=== PATIENT | female | born 1990 | race Caucasian/White ===

== ENCOUNTER → 2017-07-08 15:41 | Outpatient (CLI) | payer OTHER, SELFPAY ==
[2017-07-08 17:55] LABS: T4 Free Direct 1.01 ng/dL (0.76-1.46); Thyroid Stim Hormone (TSH) 0.96 uIU/mL (0.358-3.74)
== END ==
PROVIDERS: Family Provider Family Medicine; PCP Family Medicine; Visit Provider Internal Medicine Endocrinology, Diabetes & Metabolism
DX: E03.8 Other specified hypothyroidism (principal)
CPT/HCPCS: 36415; 84439; 84443

== ENCOUNTER 2017-09-26 19:40 | Inpatient (IN) | payer OTHER, SELFPAY ==
[2017-09-26] MEDS: Lactated Ringers 1,000 ML 50 ML IV (19:45)
[2017-09-26 20:13] VITALS: BMI 25.2
[2017-09-26 20:17] LABS: Hematocrit 37.4 % (37-47); Hemoglobin 13.1 g/dl (12.0-15.0); Mean Corpuscular Hgb 31.6 pg (27.0-32.0); Mean Corpuscular Volume 90.1 fL (81-99); Mean Platelet Vol. 9.4 fl (6.2-12.0); Platelet Count 235 K/mm3 (150-450); RBC Distribution Width CV 13.6 % (11.6-14.6); RBC Distribution Width SD 44.3 fl (35.1-43.9); Red Blood Count 4.15 M/mm3 (4.2-5.4); Scan Indicated on CBC? Y/N NO; White Blood Count 11.3 K/mm3 (4.4-11.0)
--- NOTE | 2017-09-26 21:11 | PCM.HP.OB ---
History Date of Admission: 09/26/17 Final ZAIRA: 09/26/17 Final ZAIRA Source: US <20 weeks Gestational age: 40 Weeks and 0 Days History of this : 26-year-old 2 para 1 female who presents at 40 weeks gestation with EDC of 09/26/2017 by last menstrual period confirmed by first trimester ultrasound who presents for elective induction of labor. She denies any gross vaginal bleeding or leaking of fluid. She has had some cramping but no regular contractions. She has had good movements and lots of pelvic pressure. Her has been uncomplicated to date. Past medical history significant for mitral valve prolapse and uninodular goiter Family medical history is noncontributory Past surgical history is tonsillectomy Allergies No Known Allergies Allergy (Verified 09/26/17 19:51) Home Medications: Home Medications Prenatabs FA 1 tab PO DAILY 12/13/15 Levothyroxine Sodium [Synthroid] 75 mcg PO DAILY 09/26/17 Levothyroxine [Synthroid] 50 mcg PO DAILY 09/26/17 Smoking Status: Never smoker Alcohol: None - while Number of Fetus(es): 1 History Past Pregnancies: Past Pregnancies Delivery Date Name GA/Weeks Outcome Route Weight Infant Gender Labor Length Anesthesia Delivery Location Provider FOB Expected Delivery Method: Spontaneous Vaginal Review of Systems Constitutional: Denies: Chills, Fever Eyes: Denies: Blurred vision Cardiovascular: Denies: Chest Pain Respiratory: Denies: Cough, Shortness of Breath Skin: Denies: Rash Physical Exam General: Alert, Cooperative, No apparent distress Cardiovascular: Regular rate Lungs: Normal air movement Abdomen: Soft, Non Tender, Non-Distended, Gravid, Appropriate for Gestational Age Extremities:: Other - edema-1+ Estimated gestational size: Appropriate for gestational size Presentation: Cephalic Cervix Dilation (cm): 5 - mid position, soft Station: 0 Effacement (%): 80 Assessment/Plan This is a 26 year-old, G 2, P 1, at 40 weeks gestational age. Patient with advanced cervical dilation and favorable cervix. She is having irregular contractions. Will admit for early labor and augment with Pitocin as needed. Artificial rupture membranes. Group B strep prophylaxis initiated. Estimated weight is less than 4500 g and pelvis clinically adequate to expect vaginal delivery. May have epidural, nitrous oxide, or Nubain as needed for pain control.
[2017-09-26] MEDS: Oxytocin 30 units/NS 500 ml 30 UNITS/500 ML IV.SOLN IV (22:26)
[2017-09-26] MEDS: 0.9% Saline Lock 10 ML Syringe IV (22:27)
[2017-09-26] MEDS: Ondansetron 4 MG/2 ML Vial IV (23:59)
[2017-09-27] MEDS: Oxytocin 30 units/NS 500 ml 30 UNITS/500 ML IV.SOLN 334 UNITS IV (01:08)
--- NOTE | 2017-09-27 01:25 | PCM.OB.VAG ---
Vaginal Delivery Maternal Presentation: Elective Induction - advanced cervical dilation Method of Induction: Pitocin, Amniotomy Amniotic Membrane Rupture Type: Artificial Amniotic Fluid Description: Clear Final ZAIRA: 09/26/17 Final ZAIRA Source: US <20 weeks Gestational age: 40 Weeks and 1 Days Date of Procedure: 09/27/17 Pre-Operative Diagnosis: labor Post-Operative Diagnosis: same Surgery/ Procedure Performed: Spontaneous Vaginal Delivery Type of Anesthesia: None Description of Procedure: A vigorous female was delivered MILLY over an intact perineum. The remainder the infant was delivered with maternal pushing and gentle traction only in less than 15 seconds. The Pitocin infusion was initiated for active management of the third stage. The cord was clamped and cut after 1 minute. The infant was attended to by the waiting nursing staff. The placenta was delivered spontaneously and intact. The cervix and vagina were intact. Sponge and needle counts were correct. A vaginal sweep was completed by me. Presentation: MILLY Placental Delivery Description: Spontaneous Placenta Disposition: [facility] Cord Vessel Description: 3 Vessels Cord Entanglement: None Drain: - - none Estimated Blood Loss: 200 A gender: Female (1 minute): 8 (5 minute): 9 Episiotomy Description: None Laceration: None Medications given after delivery: IV Pitocin Complications: None
[2017-09-27] MEDS: Oxytocin 30 units/NS 500 ml 30 UNITS/500 ML IV.SOLN 167 UNITS IV (01:38)
[2017-09-27] MEDS: 0.9% Saline Lock 10 ML Syringe IV (02:41)
[2017-09-27] MEDS: Naproxen 250 MG Tablet PO ×3 (02:49→20:41)
[2017-09-27 03:14] VITALS: BP 120/67; PULSE 68; RESP 18; TEMP 37.3
[2017-09-27] MEDS: Levothyroxine 50 MCG Tablet PO (06:10)
--- NOTE | 2017-09-27 08:22 | DCINST_ITS ---
Discharge Diet: No Restrictions Discharge Activity: Return to Normal Activity, May not drive while taking narcotic pain medications., May Shower May resume sexual activity in: 4-6 weeks Additional Activity Instructions:: Nothing in the vagina for 4-6 weeks. You may return to work/school in 6 weeks. Call your doctor if your incision/area has: Continuous Slow Oozing, Sudden Increased Bleeding, Increased Pain/ Swelling, Increased Redness, Foul Smelling Discharge Additional Instructions: If you experience any of the following, contact your healthcare provider. * Bleeding that soaks a pad every hour for 2 hours * Fever 100.4 or higher * Unrelieved incision or abdominal pain * Swelling, redness, discharge or bleeding from your incision or episiotomy site * Your incision begins to separate * Problems urinating (including inability to urinate or burning while urinating) . * Visual changes * Severe headache * Flu-like symptoms * Pain or redness in one of both of your breasts * Pain, warmth, tenderness or swelling in your legs, especially the calf area * Frequent nausea and vomiting * Symptoms of depression or anxiety If you experience any of the following, call 911 or go to the nearest Emergency Room. * Chest pain * Problems breathing * Seizure activity * Partial or complete paralysis of a body part, slurred speech, weakness or drooping of the face, or a sudden inability to walk or hold your balance Allergies/Adverse Reactions: Allergies No Known Allergies Allergy (Verified 09/26/17 19:51) Medications to take at Discharge Prenatabs FA 1 tab PO DAILY 12/13/15 Levothyroxine Sodium [Synthroid] 75 mcg PO DAILY 09/26/17 Levothyroxine [Synthroid] 50 mcg PO DAILY 09/26/17 Ibuprofen [Motrin] 600 mg PO Q6H PRN #60 tab 09/27/17 The following prescriptions were given: Ibuprofen [Motrin] 600 mg PO Q6H PRN #60 tab PRN Reason: Pain Please Follow Up With: Julieta Sierra MD - [phone] When: Call to make an appointment with your doctor in 6 weeks. If you had elevated Blood Pressure or 4th degree laceration you will need to be seen in 2 weeks. Primary Care Physician: Jermaine Hanson MD [Primary Care Provider] -
[2017-09-27 09:14] VITALS: BP 99/58; PULSE 62; RESP 16; TEMP 36.9
[2017-09-27] MEDS: Senna/Docusate Sodium 1 Tablet PO (11:58)
[2017-09-27 12:30] VITALS: BP 106/62; PULSE 66; RESP 16; TEMP 36.7
[2017-09-27 16:00] VITALS: BP 102/58; PULSE 61; RESP 16; TEMP 37.2
[2017-09-27 21:01] VITALS: BP 98/51; PULSE 59; RESP 16; TEMP 36.3; O2SAT 99
[2017-09-28 01:06] VITALS: BP 93/53; PULSE 68; RESP 16; TEMP 36.7; O2SAT 99
[2017-09-28] MEDS: Naproxen 250 MG Tablet PO (06:30)
[2017-09-28] MEDS: Levothyroxine 50 MCG Tablet PO (06:31)
--- NOTE | 2017-09-28 08:37 | PCM.PN.OB ---
Subjective: No complaints - Physical Exam General: Alert, Oriented x3 Abdomen: Soft, Non Tender, Non-Distended - ff mid & below umb Extremities: No Calf Tenderness Vital Signs Temp Pulse Resp BP Pulse Ox 98.1 F 68 16 93/53 L 99 09/28/17 01:06 09/28/17 01:06 09/28/17 01:06 09/28/17 01:06 09/28/17 01:06 Oxygen Delivery Method Room Air Weight: 161 lb 6.054 oz Body Mass Index (BMI) 25.2 Intake and Output for Last 24 Hours 09/26/17 09/27/17 09/28/17 23:59 23:59 23:59 Intake Total 694 / 694 Output Total 200 / 200 400 / 400 Balance -200 / -200 294 / 294 Medical Necessity - Tobacco Use Smoking Status: Never smoker Assessment/Plan PPD#1 D/c home
[2017-09-28 08:40] VITALS: BP 111/59; PULSE 62; RESP 20; TEMP 36.3
== END 2017-09-28 12:10 | disposition home or self-care (01) | DRG 775 ==
PROVIDERS: Admitting Provider Obstetrics & Gynecology; Family Provider Family Medicine; PCP Family Medicine; Visit Provider Obstetrics & Gynecology
DX: O48.0 Post-term pregnancy (principal); Z3A.40 40 weeks gestation of pregnancy; Z37.0 Single live birth
CPT/HCPCS: 59025; 59050; 85027; 86850; 86900; 99218; J7120; A4216; G0378; J2405

== ENCOUNTER → 2017-11-08 15:25 | Outpatient (CLI) | payer OTHER, SELFPAY ==
[2017-11-08 17:10] LABS: ALB/GLOB Ratio 1.3 RATIO (0.9-2.4); AST(SGOT) 19 U/L (15-37); Alanine Aminotransfer ALT/SGPT 31 U/L (13-56); Alkaline Phosphatase 71 U/L (45-117); Anion Gap 7 (5-15); BUN 16 mg/dL (7-18); BUN/Creat Ratio 20.2 RATIO (10-20); Calcium,Total 8.7 mg/dL (8.5-10.1); Chloride 104 mmol/L (98-107); Creatinine, Serum 0.79 mg/dL (0.55-1.02); EST Glomerular Filtration Rate 93 mL/min (>60); Est Glom Filt Rate - Afr Amer 112 mL/min (>60); Glucose 92 mg/dL (74-106); Potassium 4.1 mmol/L (3.5-5.1); Sodium Level 140 mmol/L (136-145); T4 Free Direct 1.02 ng/dL (0.76-1.46)
== END ==
PROVIDERS: Family Provider Family Medicine; PCP Family Medicine; Visit Provider Internal Medicine Endocrinology, Diabetes & Metabolism
DX: E03.8 Other specified hypothyroidism (principal)
CPT/HCPCS: 36415; 80053; 84439; 84443

== ENCOUNTER → 2017-12-23 19:06 | Outpatient (CLI) | payer OTHER, SELFPAY | PROVIDERS: Family Provider Family Medicine; PCP Family Medicine; Visit Provider Physician Assistant | DX: J02.9 Acute pharyngitis, unspecified (principal) | CPT/HCPCS: 87081 ==

== ENCOUNTER → 2018-02-27 11:31 | Outpatient (CLI) | payer OTHER, SELFPAY ==
[2018-02-27 13:59] LABS: Thyroid Stim Hormone (TSH) 2.68 uIU/mL (0.358-3.74)
== END ==
PROVIDERS: Family Provider Family Medicine; PCP Family Medicine; Referring Provider Internal Medicine Endocrinology, Diabetes & Metabolism; Visit Provider Internal Medicine Endocrinology, Diabetes & Metabolism
DX: E03.8 Other specified hypothyroidism (principal)
CPT/HCPCS: 36415; 84443

== ENCOUNTER → 2018-10-29 16:13 | Outpatient (CLI) | payer OTHER, SELFPAY ==
[2017-12-23 10:23] VITALS: BMI 22.1
[2018-10-29 18:08] LABS: BUN 10 mg/dL (7-18); Creatinine, Serum 0.57 mg/dL (0.55-1.02); EST Glomerular Filtration Rate 135 mL/min (>60); Glucose 90 mg/dL (74-106)
[2018-10-29 18:09] LABS: ALB/GLOB Ratio 1.3 RATIO (0.9-2.4); AST(SGOT) 24 U/L (15-37); Alanine Aminotransfer ALT/SGPT 31 U/L (13-56); Albumin, Serum 3.8 g/dL (3.2-5.0); Alkaline Phosphatase 65 U/L (45-117); Anion Gap 8 (5-15); BUN/Creat Ratio 17.6 RATIO (10-20); Calcium,Total 8.3 mg/dL (8.5-10.1); Chloride 105 mmol/L (98-107); Est Glom Filt Rate - Afr Amer 164 mL/min (>60); Potassium 3.5 mmol/L (3.5-5.1); Protein, Total 6.8 g/dL (6.4-8.2); Sodium Level 140 mmol/L (136-145); Thyroid Stim Hormone (TSH) 2.41 uIU/mL (0.358-3.74)
== END ==
PROVIDERS: Family Provider Family Medicine; PCP Family Medicine; Referring Provider Internal Medicine Endocrinology, Diabetes & Metabolism; Visit Provider Internal Medicine Endocrinology, Diabetes & Metabolism
DX: E03.8 Other specified hypothyroidism (principal)
CPT/HCPCS: 36415; 80053; 84443

== ENCOUNTER 2019-02-11 13:55 | Outpatient (REF) | payer SELFPAY ==
[2019-02-11 13:56] VITALS: BP 111/68; PULSE 91; RESP 15; TEMP 37.3; O2SAT 99; BMI 21.3
--- NOTE | 2019-02-11 14:08 | ED.RN ---
exposure protocols ordered. dr Walker consulted about case. syed jaramillo rn [id number]
--- NOTE | 2019-02-11 14:39 | ED.DCSUM_ITS ---
- ER Visit Summary Date of Service: 02/11/19 Chief Complaint: Body fluid exposure History of Present Illness: The patient is a 28 F who was assisting in a delivery of an infant today. Another nurse was suctioning the airway of the and went to squirt the bulb suction out and it hit the patient in the face and probably into her eye. She washed at the eye station was advised to come to the emergency department. She does not wear contacts. Physical Examination: Afebrile vital signs stable Gen: Well-nourished well-developed Head: Normocephalic atraumatic Eyes: Perrl EOMI ENT: TMs clear no rhinorrhea moist mucous membranes Neck: Supple no lymphadenopathy no JVD nontender CVS: Regular rate rhythm no murmurs normal S1-S2 Respiratory: No distress clear to auscultation bilaterally chest nontender Skin: Normal color no rash Neuro: alert orientated ?3 CN II-XII intact Psych: Normal affect normal mood Emergency Department Course and Treatment: Body fluid exposure protocol was instituted. Patient will need to follow-up with occupational medicine. She received a pamphlet regarding fluid exposures. She is declining preventative medicines at this time. Impression: 1. Occupational body fluid exposure This note was generated with [employer] dictation software. It may contain incorrect words, spelling, and punctuation that were not noted in review of the chart prior to signing ED Disposition - Plan for ED Patient: Disposition: Home or Assisted Living Instructions: BODY FLUID EXPOSURE, Health Care Worker Additional Instructions: Please follow-up with employee health here at [facility]
[2019-02-11 15:05] VITALS: RESP 16
[2019-02-11 16:40] LABS: HIV - WCH Non-Reactive (Nonreactive); Hepatitis B Surface Antibody Reactive; Hepatitis B Surface Antigen Non-Reactive (Nonreactive); Hepatitis C Antibody Non-Reactive (Nonreactive)
== END 2019-02-11 15:09 | disposition home or self-care (01) ==
LOC: ED 13:55
PROVIDERS: Family Provider Family Medicine; PCP Family Medicine; Visit Provider Emergency Medicine
DX: Z77.21 Contact with and (suspected) exposure to potentially hazardous body fluids (principal); E03.9 Hypothyroidism, unspecified; Z79.899 Other long term (current) drug therapy
CPT/HCPCS: 36415; 86703; 86706; 86803; 87340

== ENCOUNTER → 2019-05-12 11:38 | Outpatient (CLI) | payer OTHER, SELFPAY ==
[2019-02-14 11:08] VITALS: BMI 21.3
[2019-05-12 13:52] LABS: ALB/GLOB Ratio 1.3 RATIO (0.9-2.4); AST(SGOT) 9 U/L (15-37); Alanine Aminotransfer ALT/SGPT 19 U/L (13-56); Albumin, Serum 4.3 g/dL (3.2-5.0); Alkaline Phosphatase 42 U/L (45-117); Anion Gap 4 (5-15); BUN 11 mg/dL (7-18); BUN/Creat Ratio 14.3 RATIO (10-20); Chloride 105 mmol/L (98-107); Creatinine, Serum 0.77 mg/dL (0.55-1.02); EST Glomerular Filtration Rate 95 mL/min (>60); Est Glom Filt Rate - Afr Amer 115 mL/min (>60); Globulin 3.4 g/dL (2.2-4.2); Glucose 88 mg/dL (74-106); Potassium 3.1 mmol/L (3.5-5.1); Protein, Total 7.7 g/dL (6.4-8.2); Sodium Level 137 mmol/L (136-145); Thyroid Stim Hormone (TSH) 2.13 uIU/mL (0.358-3.74)
== END ==
PROVIDERS: Family Provider Family Medicine; PCP Family Medicine; Referring Provider Internal Medicine Endocrinology, Diabetes & Metabolism; Visit Provider Internal Medicine Endocrinology, Diabetes & Metabolism
DX: E03.8 Other specified hypothyroidism (principal)
CPT/HCPCS: 36415; 80053; 84443

== ENCOUNTER → 2019-05-18 14:07 | Outpatient (CLI) | payer OTHER, SELFPAY ==
[2019-02-14 11:08] VITALS: BMI 21.3
[2019-05-18 16:11] LABS: Anion Gap 3 (5-15); BUN 8 mg/dL (7-18); BUN/Creat Ratio 12.9 RATIO (10-20); Calcium,Total 8.9 mg/dL (8.5-10.1); Chloride 107 mmol/L (98-107); Creatinine, Serum 0.62 mg/dL (0.55-1.02); EST Glomerular Filtration Rate 122 mL/min (>60); Est Glom Filt Rate - Afr Amer 147 mL/min (>60); Glucose 93 mg/dL (74-106); Magnesium 2.1 mg/dL (1.6-2.6); Potassium 3.6 mmol/L (3.5-5.1); Sodium Level 138 mmol/L (136-145)
== END ==
LOC: LAB.FUTURE 14:09 → LAB 14:10
PROVIDERS: Family Provider Family Medicine; PCP Family Medicine; Referring Provider Internal Medicine Endocrinology, Diabetes & Metabolism; Visit Provider Internal Medicine Endocrinology, Diabetes & Metabolism
DX: E83.42 Hypomagnesemia (principal)
CPT/HCPCS: 36415; 80048; 83735

== ENCOUNTER → 2019-06-02 15:07 | Outpatient (CLI) | payer OTHER, SELFPAY ==
[2019-02-14 11:08] VITALS: BMI 21.3
[2019-06-02 16:39] LABS: Anion Gap 4 (5-15); BUN 12 mg/dL (7-18); BUN/Creat Ratio 18.1 RATIO (10-20); Calcium,Total 9.3 mg/dL (8.5-10.1); Chloride 104 mmol/L (98-107); Creatinine, Serum 0.66 mg/dL (0.55-1.02); EST Glomerular Filtration Rate 112 mL/min (>60); Est Glom Filt Rate - Afr Amer 136 mL/min (>60); Glucose 75 mg/dL (74-106); Potassium 3.6 mmol/L (3.5-5.1); Sodium Level 139 mmol/L (136-145)
== END ==
PROVIDERS: PCP Family Medicine; Referring Provider Internal Medicine Endocrinology, Diabetes & Metabolism; Visit Provider Internal Medicine Endocrinology, Diabetes & Metabolism
DX: E03.8 Other specified hypothyroidism (principal)
CPT/HCPCS: 36415; 80048

== ENCOUNTER → 2020-07-29 14:39 | Outpatient (CLI) | payer OTHER, SELFPAY ==
[2019-02-14 11:08] VITALS: BMI 21.3
== END ==
PROVIDERS: PCP Family Medicine; Visit Provider Advanced Practice Midwife
DX: Z03.818 Encounter for observation for suspected exposure to other biological agents ruled out (principal)
CPT/HCPCS: 87635; C9803; U0002

== ENCOUNTER 2020-08-04 15:30 | Inpatient (IN) | payer OTHER, SELFPAY ==
[2019-02-14 11:08] VITALS: BMI 21.3
[2020-08-04] VITALS (30 sets, daily range): BP systolic 94–126; BP diastolic 56–81; PULSE 66–195; TEMP 36.3–37.4; O2SAT 81–100; BMI 26.2
[2020-08-04] MEDS: Lactated Ringers 1,000 ML 50 ML IV (16:04)
[2020-08-04 16:34] LABS: Absolute Lymphocyte Count 2.26 X10^3/uL (0.83-4.51); Absolute Neutrophil Count 6.9 X10^3/uL (2.0-7.7); Basophil# 0.03 X10^3/uL; Basophil% 0.3 % (0-1); Hematocrit 38.8 % (37-47); Hemoglobin 13.7 g/dL (12.0-15.0); Lymphocyte # 2.26 X10^3/ul (4.0); Lymphocyte % 22.5 % (19-41); Mean Corp Hgb Conc 35.3 g/dL (32-36); Mean Corpuscular Hgb 32.5 pg (27.0-32.0); Mean Corpuscular Volume 91.9 fL (81-99); Mean Platelet Vol. 9.6 fl (6.2-12.0); Monocyte# 0.71 X10^3/uL; Monocyte% 7.1 % (0-10); NRBC Flagged by Analyzer 0 % (0-5); Neutrophil # 6.89 X10^3/uL (2.7-7.7); Neutrophil % 68.4 % (47-70); Platelet Count 244 K/mm3 (150-450); RBC Distribution Width CV 13.5 % (11.6-14.6); RBC Distribution Width SD 44.9 fl (35.1-43.9); Red Blood Count 4.22 M/mm3 (4.2-5.4); White Blood Count 10.1 K/mm3 (4.4-11.0)
[2020-08-04] MEDS: Oxytocin 30 units/NS 500 ml 30 UNITS/500 ML IV.SOLN IV (16:46)
--- NOTE | 2020-08-04 18:58 | PCM.HP.OB ---
- Problem List (1) 41 weeks gestation of Status: Acute (2) Positive GBS test Status: Acute (3) Encounter for induction of labor Status: Acute History Date of Admission: 08/04/20 Final ZAIRA: 07/28/20 Final ZAIRA Source: US <20 weeks Gestational age: 41 Weeks and 0 Days History of this : This is a 29 year-old, G [3], P [2002], at 41.0 weeks gestational age for induction of labor for postdates. Patient denies any loss of fluid, vaginal bleeding or regular contractions. Positive movement. has been uneventful. Patient has a history of a thyroid nodule and currently taking Synthroid PO daily. Medical History: Medical History (Last Reviewed 02/14/19 @ 10:38 by Arti Miller) Hay fever J30.1 Normal labor and delivery O80 Thyroid disease E07.9 Allergies No Known Allergies Allergy (Verified 02/14/19 10:38) Home Medications: Home Medications Levothyroxine [Synthroid] 50 mcg PO DAILY 09/26/17 Vits [Prenatabs FA] 1 tablet PO DAILY 08/04/20 Smoking Status: Never smoker Number of Fetus(es): 1 NST - FHR Rate Baby A Baseline: 140 Variability:: Moderate Accelerations:: 15 x 15 Decelerations:: None NST Reactive:: Yes FHR Category:: Category I Uterine Activity:: TOCO reading every 2-5 minutes that palpate mild and relaxed in between History Past Pregnancies: Past Pregnancies Delivery Date Name GA/ Weeks Outcome Route Wt Sex Labor Length Anesthesia Delivery Location Provider FOB Labs: A + Rubella immune HB- neg HC- neg RPR- NR HIV- NR GBS- positive COVID-19- negative Expected Infant Delivery Method: Spontaneous Vaginal Review of Systems Constitutional: Denies: Chills, Fever, Weight Change HEENT: Denies: Head Aches, Sinus Drainage Cardiovascular: Denies: Chest Pain, Palpitations Respiratory: Denies: Cough, Shortness of breath at rest Gastrointestinal: Denies: Abdominal Pain, Nausea, Vomiting Genitourinary: Denies: Dysuria Musculoskeletal: Denies: Joint Pain, Joint Tenderness Neurological: Denies: Headaches Physical Exam Vitals: Vital Signs Temp Pulse BP Pulse Ox 99.4 F H 67 94/57 L 98 08/04/20 17:06 08/04/20 18:13 08/04/20 18:13 08/04/20 15:44 General: Alert, Oriented x3 HEENT: Atraumatic, Normocephalic, Thyromegaly. Negative for: Lymphadenopathy Cardiovascular: Regular rate, Regular Rhythm Lungs: Normal air movement Abdomen: Soft, Non Tender, Gravid Neurological: Cranial nerves II-XII grossly intact Estimated gestational size: Appropriate for gestational size Presentation: Cephalic Cervix Dilation (cm): 3 - RN exam Station: -2 Assessment/Plan All Active Problems (Last Reviewed 02/14/19 @ 10:38 by Arti Miller) 41 weeks gestation of (Acute) Positive GBS test (Acute) Encounter for induction of labor (Acute) Fever and chills (Acute) Urinary frequency (Acute) Pharyngitis (Acute) This is a 29 year-old, G [3], P [2], at 41.0 weeks gestational age for induction of labor for postdates. Admit to labor and delivery Routine labs IV fluids per policy GBS positive- Start PCN 5 million units IV x1 then PCN 3 million units IV every 4 hours until delivery Pitocin IV and titrate per policy Epidural or pain medication when indicated Anticipate Dr. Sierra notified of admission and is collaborating physician
[2020-08-04] MEDS: Lactated Ringers 500 ML 999 ML IV (21:30)
[2020-08-04] MEDS: Lactated Ringers 1,000 ML 200 ML IV (22:10)
[2020-08-04] MEDS: fentaNYL-bupivacaine (epidural) 100 ML BAG EPIDURAL (22:46)
[2020-08-04] MEDS: 0.9% Saline Lock 10 ML Syringe IV (22:56)
[2020-08-04] MEDS: Ondansetron 4 MG/2 ML Vial IV (22:56)
--- NOTE | 2020-08-04 23:40 | PN.OBGYN_ITS ---
Patient Problems: Active and Suspected Problems (Last Reviewed 02/14/19 @ 10:38 by Arti Miller) 41 weeks gestation of (Acute) Positive GBS test (Acute) Encounter for induction of labor (Acute) Subjective: Patient seen at bedside. Comfortable with epidural anesthesia. Requesting AROM at this time. Objective: 1 - Physical Exam Vitals/I&O's: Vital Signs Temp Pulse BP Pulse Ox 98.4 F 89 117/59 L 98 08/05/20 02:06 08/05/20 02:50 08/05/20 02:43 08/05/20 02:50 Weight: 167 lb 8.821 oz Body Mass Index (BMI) 26.2 Intake and Output for Last 24 Hours 08/03/20 08/04/20 08/05/20 23:59 23:59 23:59 Intake Total 2000.96 / 1999.96 Output Total 500 / 500 Balance 1500.96 / 1500.96 General: Alert, Oriented x3 HEENT: Atraumatic Oral: Moist Mucosa Lungs: Normal air movement Cardiovascular: Regular rate Abdomen: Soft, Non Tender, Gravid Skin: No rashes Neurological: Cranial nerves II-XII grossly intact Psych/Mental Status: Normal Affect, Appropriate Laboratory Results 08/04/20 16:10: WBC 10.1, RBC 4.22, Hgb 13.7, Hct 38.8, MCV 91.9, MCH 32.5 H, MCHC 35.3, RDW Std Deviation 44.9 H, RDW Coeff of Jah 13.5, Plt Count 244, MPV 9.6, Immature Gran % (Auto) 0.700, Neut % (Auto) 68.4, Lymph % (Auto) 22.5, [place] % (Auto) 7.1, Eos % (Auto) 1.0, Baso % (Auto) 0.3, Absolute Neuts (auto) 6.9, Absolute Lymphs (auto) 2.26, Nucleated RBC % 0 08/04/20 16:10: Blood Type A POSITIVE, Antibody Screen NEGATIVE Current Medications Acetaminophen (Acetaminophen 500 Mg Tablet) 500 - 1,000 mg PO Q6H PRN PRN PRN Reason: Pain Score 1-3 Al Hydroxide/Mg Hydroxide (Mag Hydrox/Al Hydrox/Simeth 30 Ml Udc) 15 - 30 ml PO Q4H PRN PRN PRN Reason: INDIGESTION Last Admin: 08/05/20 01:10 Dose: 30 ml Documented by: Citric Acid/Sodium Citrate (Sodium Citrate/Citric Acid 30 Ml Udc) 30 ml PO X1 PRN PRN Reason: Section Ephedrine Sulfate (Ephedrine Sulfate 50 Mg/Ml Ampul) 10 mg IV Q10M PRN PRN Reason: hypotension Ephedrine Sulfate (Ephedrine Sulfate 50 Mg/Ml Ampul) 10 mg IM Q30M PRN PRN Reason: hypotension Fentanyl Citrate (Fentanyl 100 Mcg/2 Ml Ampul) 25 - 50 mcg IV Q2H PRN PRN PRN Reason: Pain Score 4-10 Fentanyl/Bupivacaine/Sodium Chlor (Fentanyl-Bupivacaine (Epidural) 100 Ml Bag) 0 ml EPIDURAL [facility]; Protocol Last Admin: 08/04/20 22:46 Dose: 10 ml Documented by: Lactated Ringer's () 500 mls @ 999 mls/hr IV .Q31M PRN PRN Reason: Epidural Last Infusion: 08/04/20 22:01 Dose: Infused Documented by: Lactated Ringer's () 500 mls @ 999 mls/hr IV .Q31M PRN PRN Reason: Corrective Measures Lactated Ringer's () 1,000 mls @ 50 mls/hr IV .Q20H [facility] Last Admin: 08/04/20 22:10 Dose: 200 mls/hr Documented by: Oxytocin/Sodium Chloride () 30 units in 500 mls @ 2 mls/hr IV .Q250H [facility] Last Infusion: 08/05/20 00:10 Dose: 14 mls/hr Documented by: Penicillin G Potassium/Dextrose (Penicillin G Potassium) 3 mu in 50 mls @ 100 mls/hr IV Q4H [facility] Last Infusion: 08/05/20 00:40 Dose: Infused Documented by: Nalbuphine HCl (Nalbuphine 10 Mg/Ml Ampul) 5 mg IV Q3H PRN PRN PRN Reason: ITCHING Naloxone HCl (Naloxone 0.4 Mg/Ml Syringe) 0.02 mg IV Q1M PRN PRN Reason: RR <10 and pt unresponsive Ondansetron HCl (Ondansetron 4 Mg/2 Ml Vial) 4 mg IV Q4H PRN PRN PRN Reason: NAUSEA Last Admin: 08/04/20 22:56 Dose: 4 mg Documented by: Prochlorperazine Edisylate (Prochlorperazine 10 Mg/2 Ml Vial) 10 mg IV Q6H PRN PRN PRN Reason: NAUSEA Sodium Chloride (0.9% Saline Lock 10 Ml Syringe) 10 - 40 ml IV X1 PRN PRN Reason: SALINE FLUSH Last Admin: 08/04/20 22:56 Dose: 10 ml Documented by: Medical Necessity - Tobacco Use Smoking Status: Never smoker Assessment/Plan All Active Problems (Last Reviewed 02/14/19 @ 10:38 by Arti Miller) 41 weeks gestation of (Acute) Positive GBS test (Acute) Encounter for induction of labor (Acute) Fever and chills (Acute) Urinary frequency (Acute) Pharyngitis (Acute) at 41.0 weeks gestation for induction of labor for postdates. Category 1 tracing Pitocin IV at 10 mu/min AROM for large amount of light meconium fluid Continue present management Anticipate
[2020-08-05] VITALS (23 sets, daily range): BP systolic 92–117; BP diastolic 50–63; PULSE 55–96; RESP 14–16; TEMP 36.6–37.4; O2SAT 94–100
[2020-08-05] MEDS: Mag Hydrox/Al Hydrox/Simeth 30 ML UDC PO (01:10)
[2020-08-05] MEDS: Amnioinfusion- 0.9% NS 1,000 ML IV.SOLN. INTRA-UTER (02:15)
[2020-08-05] MEDS: Oxytocin 30 units/NS 500 ml 30 UNITS/500 ML IV.SOLN 334 UNITS IV (02:37)
--- NOTE | 2020-08-05 03:00 | PCM.OPRPT ---
Problem List (1) 41 weeks gestation of Status: Acute (2) Positive GBS test Status: Acute (3) Encounter for induction of labor Status: Acute (4) (spontaneous vaginal delivery) Status: Acute (5) Meconium in amniotic fluid Status: Acute Report of Operation Date of Procedure: 08/05/20 Vaginal Delivery Maternal Presentation: Medically Indicated Induction Patient is a at 41.0 weeks for induction of labor for post dates. Method of Induction: Pitocin, Amniotomy Medical Reason for Induction: Post term Amniotic Membrane Rupture Type: Artificial Rupture of Membrane time: 2329 Amniotic Fluid Description: Lightly stained meconium Final ZAIRA: 07/28/20 Gestational age: 41 Weeks and 1 Days doctor who attended delivery (if requested by OB): Chace Lora Date of Procedure: 08/05/20 Pre-Operative Diagnosis: post term gestation Post-Operative Diagnosis: , live female Surgery/ Procedure Performed: Spontaneous Vaginal Delivery Type of Anesthesia: Epidural Description of Procedure: Called to room by nursing due to patient feeling pressure and being fully dilated. head delivered quickly with minimal maternal effort followed by shoulders and remainder of . Cord around neck and body x1 loose. delivered through. Vigorous infant placed on maternal abdomen and attended to by nursing staff. Pitocin IV started for active management of the third stage. Three vessel cord was clamped and cut by FOB after 3 minute delay and no further pulsation. Infant placed immediately skin to skin with patient. Placenta delivered spontaneously and intact via [place]. Perineum and vagina intact. Vaginal sweep completed by me. Fundus firm and 1 below U. EBL 200 cc. APGARS 8/9. bonding with patient at this time. Dr. Sierra notified of delivery Presentation: Vertex Placental Delivery Description: Spontaneous Placenta Disposition: [facility] Cord Vessel Description: 3 Vessels Cord Entanglement: Around neck x 1, loose - Around body x1 Estimated Blood Loss: 200 A gender: Female (1 minute): 8 (5 minute): 9 Episiotomy Description: None Laceration: None Medications given after delivery: IV Pitocin Complications: None
[2020-08-05] MEDS: 0.9% Saline Lock 10 ML Syringe IV (05:11)
[2020-08-05] MEDS: Ibuprofen 600 MG Tablet PO ×3 (06:16→19:56)
[2020-08-05] MEDS: Acetaminophen 500 MG Tablet 1000 MG PO ×2 (10:50→23:56)
[2020-08-05] MEDS: Senna/Docusate Sodium 1 Tablet PO (13:00)
--- NOTE | 2020-08-05 14:54 | NURSING ---
Report given to Ave COLLIER and Shelly Mohan RN. They will assume care of patient at this time.
[2020-08-06] MEDS: Ibuprofen 600 MG Tablet PO (07:42)
[2020-08-06 07:47] VITALS: BP 98/72; PULSE 59; RESP 16; TEMP 36.6; O2SAT 98
--- NOTE | 2020-08-06 07:51 | PCM.PN.OB ---
Patient Problems: Active and Suspected Problems (Last Reviewed 02/14/19 @ 10:38 by Arti Miller) 41 weeks gestation of (Acute) Positive GBS test (Acute) Encounter for induction of labor (Acute) (spontaneous vaginal delivery) (Acute) Meconium in amniotic fluid (Acute) Subjective: Doing well per patient and nursing staff. Ambulating and taking PO without difficulty. Voiding and passing flatus. Pain controlled. . Denies any chest pain, shortness of breath, leg pain, increased vaginal bleeding or clots. Planning D/C home today. - Physical Exam Vitals/I&O's: Vital Signs Temp Pulse Resp BP Pulse Ox 97.9 F 59 L 16 98/72 98 08/06/20 07:47 08/06/20 07:47 08/06/20 07:47 08/06/20 07:47 08/06/20 07:47 Oxygen Delivery Method Room Air Weight: 167 lb 8.821 oz Body Mass Index (BMI) 26.2 Intake and Output for Last 24 Hours 08/04/20 08/05/20 08/06/20 23:59 23:59 23:59 Intake Total 2000.96 / 1999.96 2072.46 / 2072.46 Output Total 500 / 500 1999 / 1999 Balance 1500.96 / 1500.96 72.46 / 72.46 General: Alert, Oriented x3, Cooperative HEENT: Atraumatic, Normocephalic Lungs: Clear to auscultation, Normal air movement, No rhonchi, No wheeze Cardiovascular: Regular rate, Regular Rhythm, No murmurs Abdomen: Bowel Sounds Present, Soft, Non Tender - fundus firm 2 below U Extremities: No edema Psych/Mental Status: Normal Affect, Appropriate Current Medications Acetaminophen (Acetaminophen 500 Mg Tablet) 1,000 mg PO Q8H PRN PRN PRN Reason: Pain Score 1-3 Last Admin: 08/05/20 23:56 Dose: 1,000 mg Documented by: Bisacodyl (Bisacodyl 10 Mg Suppository) 10 mg RC UD PRN PRN Reason: If no BM Dibucaine (Dibucaine 30 Gm Tube) 1 applic TOPICAL TID PRN PRN; Protocol PRN Reason: Discomfort Hydrocortisone (Hydrocortisone 2.5% Crm) 1 applic TOPICAL TID PRN PRN; Protocol PRN Reason: Discomfort Ibuprofen (Ibuprofen 600 Mg Tablet) 600 mg PO Q6H PRN PRN PRN Reason: Pain Score 1-3 Last Admin: 08/06/20 07:42 Dose: 600 mg Documented by: Methylergonovine Maleate (Methylergonovine 0.2 Mg/Ml Ampul) 0.2 mg IM X1 PRN PRN Reason: Excess bleeding/uterine atony Ondansetron HCl (Ondansetron 4 Mg/2 Ml Vial) 4 mg IV Q4H PRN PRN PRN Reason: Nausea Senna/Docusate Sodium (Senna/Docusate Sodium 1 Tablet) 1 - 2 tablet PO DAILY PRN PRN PRN Reason: Constipation Last Admin: 08/05/20 13:00 Dose: 2 tablet Documented by: Simethicone (Simethicone 80 Mg Tablet) 80 mg PO PCHS PRN PRN Reason: Indigestion/Stomach pain Sodium Chloride (0.9% Saline Lock 10 Ml Syringe) 5 - 15 ml IV UD PRN PRN Reason: SALINE FLUSH Last Admin: 08/05/20 05:11 Dose: 10 ml Documented by: Throat Lozenges (Benzocaine/Lanolin/Aloe Vera 1 Applic Each) 1 applic TOPICAL 4X/DAY PRN PRN; Protocol PRN Reason: pain Medical Necessity - Tobacco Use Smoking Status: Never smoker Assessment/Plan All Active Problems (Last Reviewed 02/14/19 @ 10:38 by Arti Miller) 41 weeks gestation of (Acute) Positive GBS test (Acute) Encounter for induction of labor (Acute) (spontaneous vaginal delivery) (Acute) Meconium in amniotic fluid (Acute) Fever and chills (Acute) Urinary frequency (Acute) Pharyngitis (Acute) A:PPD #1 P: 1) Routine care and discharge instructions 2) instructions 3) VS stable 4) Follow up in 2 weeks and 6 weeks PP 5) Discharge home today.
--- NOTE | 2020-08-06 07:54 | DCINST_ITS ---
Discharge Diet: No Restrictions Discharge Activity: Return to Normal Activity, May not drive while taking narcotic pain medications., May Shower May resume sexual activity in: 4-6 weeks Weight Bearing Status: Full weight bearing Additional Activity Instructions:: Nothing in the vagina for 4-6 weeks. You may return to work/school in 6 weeks. Call your doctor if your incision/area has: Continuous Slow Oozing, Sudden Increased Bleeding, Increased Pain/ Swelling, Increased Redness, Foul Smelling Discharge Additional Instructions: If you experience any of the following, contact your healthcare provider. * Bleeding that soaks a pad every hour for 2 hours * Fever 100.4 or higher * Unrelieved incision or abdominal pain * Swelling, redness, discharge or bleeding from your incision or epis iotomy site * Your incision begins to separate * Problems urinating (including inability to urinate or burning while urinating). * Visual changes * Severe headache * Flu-like symptoms * Pain or redness in one of both of your breasts * Pain, warmth, tenderness or swelling in your legs, especially the calf area * Frequent nausea and vomiting * Symptoms of depression or anxiety If you experience any of the following, call 911 or go to the nearest Emergency Room. * Chest pain * Problems breathing * Seizure activity * Partial or complete paralysis of a body part, slurred speech, weakness or drooping of the face, or a sudden inability to walk or hold your balance Allergies/Adverse Reactions: Allergies No Known Allergies Allergy (Verified 02/14/19 10:38) Medications to take at Discharge Levothyroxine [Synthroid] 50 mcg PO DAILY 09/26/17 Vits [Prenatabs FA ] 1 tablet PO DAILY 08/04/20 Please Follow Up With: Ana Maria Melo CNM When: Call to make an appointment with your doctor in 2 weeks for virtual visit and 6 weeks. If you had elevated Blood Pressure or 4th degree laceration you will need to be seen in 2 weeks. Primary Care Physician: Jermaine Hanson MD [Primary Care Provider] - Test Results: Test results from this visit will be discussed in further detail at your follow- up appointment, if applicable.
== END 2020-08-06 09:15 | disposition home or self-care (01) | DRG 807 ==
PROVIDERS: Admitting Provider Advanced Practice Midwife; PCP Family Medicine; Visit Provider Advanced Practice Midwife
DX: O48.0 Post-term pregnancy (principal); Z37.0 Single live birth; O77.0 Labor and delivery complicated by meconium in amniotic fluid; O69.81X0 Labor and delivery complicated by cord around neck, without compression, not applicable or unspecified; E04.1 Nontoxic single thyroid nodule; O99.284 Endocrine, nutritional and metabolic diseases complicating childbirth; O99.824 Streptococcus B carrier state complicating childbirth; Z3A.41 41 weeks gestation of pregnancy; Z79.890 Hormone replacement therapy
CPT/HCPCS: 59025; 59050; 85025; 86850; 86900; 86901; 99218; J7030; J7120; A4216; G0378; J2405

== ENCOUNTER → 2020-08-25 15:30 | Outpatient (CLI) | payer OTHER, SELFPAY ==
[2020-08-04 15:46] VITALS: BMI 26.2
[2020-08-25 18:22] LABS: Anion Gap 9 (5-15); BUN 18 mg/dL (7-18); BUN/Creat Ratio 28.1 RATIO (10-20); Chloride 105 mmol/L (98-107); Creatinine, Serum 0.64 mg/dL (0.55-1.02); EST Glomerular Filtration Rate 116 mL/min (>60); Est Glom Filt Rate - Afr Amer 140 mL/min (>60); Glucose 90 mg/dL (74-106); Potassium 3.5 mmol/L (3.5-5.1); Sodium Level 139 mmol/L (136-145); Thyroid Stim Hormone (TSH) 1.15 uIU/mL (0.358-3.74)
== END ==
PROVIDERS: PCP Family Medicine; Referring Provider Internal Medicine Endocrinology, Diabetes & Metabolism; Visit Provider Internal Medicine Endocrinology, Diabetes & Metabolism
DX: E03.8 Other specified hypothyroidism (principal)
CPT/HCPCS: 36415; 80048; 84443

== ENCOUNTER → 2021-02-03 09:19 | Outpatient (CLI) | payer OTHER, SELFPAY ==
[2021-02-03 10:58] LABS: ALB/GLOB Ratio 1.4 RATIO (0.9-2.4); AST(SGOT) 12 U/L (15-37); Alanine Aminotransfer ALT/SGPT 18 U/L (13-56); Albumin, Serum 4.1 g/dL (3.2-5.0); Alkaline Phosphatase 86 U/L (45-117); Anion Gap 6 (5-15); BUN 13 mg/dL (7-18); BUN/Creat Ratio 17.9 RATIO (10-20); Chloride 106 mmol/L (98-107); Creatinine, Serum 0.72 mg/dL (0.55-1.02); EST Glomerular Filtration Rate 100 mL/min (>60); Est Glom Filt Rate - Afr Amer 121 mL/min (>60); Glucose 78 mg/dL (74-106); Potassium 3.9 mmol/L (3.5-5.1); Protein, Total 7.1 g/dL (6.4-8.2); Sodium Level 141 mmol/L (136-145); Thyroid Stim Hormone (TSH) 2.52 uIU/mL (0.358-3.74)
== END ==
PROVIDERS: PCP Family Medicine; Referring Provider Internal Medicine Endocrinology, Diabetes & Metabolism; Visit Provider Internal Medicine Endocrinology, Diabetes & Metabolism
DX: E03.8 Other specified hypothyroidism (principal)
CPT/HCPCS: 36415; 80053; 84443

== ENCOUNTER 2021-08-03 14:39 | Outpatient (CLI) | payer OTHER, SELFPAY ==
[2021-08-03 15:54] LABS: ALB/GLOB Ratio 1.6 RATIO (0.9-2.4); AST(SGOT) 18 U/L (15-37); Alanine Aminotransfer ALT/SGPT 24 U/L (13-56); Albumin, Serum 4.1 g/dL (3.2-5.0); Alkaline Phosphatase 59 U/L (45-117); Anion Gap 4 (5-15); BUN 11 mg/dL (7-18); BUN/Creat Ratio 14.9 RATIO (10-20); Calcium,Total 8.5 mg/dL (8.5-10.1); Chloride 106 mmol/L (98-107); Creatinine, Serum 0.74 mg/dL (0.55-1.02); EST Glomerular Filtration Rate 98 mL/min (>60); Est Glom Filt Rate - Afr Amer 118 mL/min (>60); Globulin 2.5 g/dL (2.2-4.2); Glucose 83 mg/dL (74-106); Potassium 3.5 mmol/L (3.5-5.1); Protein, Total 6.6 g/dL (6.4-8.2); Sodium Level 139 mmol/L (136-145); Thyroid Stim Hormone (TSH) 1.38 uIU/mL (0.358-3.74)
== END 2021-08-03 23:59 | disposition home or self-care (01) ==
LOC: LAB 14:41
PROVIDERS: PCP Family Medicine; Referring Provider Internal Medicine Endocrinology, Diabetes & Metabolism; Visit Provider Internal Medicine Endocrinology, Diabetes & Metabolism
DX: E03.8 Other specified hypothyroidism (principal); E04.2 Nontoxic multinodular goiter
CPT/HCPCS: 36415; 80053; 84443

== ENCOUNTER → 2022-02-09 | Outpatient (CLI) | payer OTHER, SELFPAY ==
[2022-02-09 12:22] LABS: Absolute Neutrophil Count 6.4 X10^3/uL (2.0-7.7); Basophil# 0.07 X10^3/uL; Basophil% 0.8 % (0-1); Eosinophil# 0.14 X10^3/uL; Eosinophils% 1.5 % (0-5); Hematocrit 44.1 % (37-47); Hemoglobin 15.1 g/dL (12.0-15.0); Lymphocyte % 23.9 % (19-41); Mean Corp Hgb Conc 34.2 g/dL (32-36); Mean Corpuscular Hgb 30.6 pg (27.0-32.0); Mean Corpuscular Volume 89.3 fL (81-99); Mean Platelet Vol. 9.1 fl (6.2-12.0); Monocyte# 0.42 X10^3/uL; Monocyte% 4.6 % (0-10); NRBC Flagged by Analyzer 0 % (0-5); Neutrophil # 6.35 X10^3/uL (2.7-7.7); Neutrophil % 68.9 % (47-70); Platelet Count 298 K/mm3 (150-450); RBC Distribution Width CV 12.3 % (11.6-14.6); RBC Distribution Width SD 40.1 fl (35.1-43.9); Red Blood Count 4.94 M/mm3 (4.2-5.4); White Blood Count 9.2 K/mm3 (4.4-11.0)
[2022-02-09 12:37] LABS: ALB/GLOB Ratio 1.3 RATIO (0.9-2.4); AST(SGOT) 14 U/L (15-37); Alanine Aminotransfer ALT/SGPT 19 U/L (13-56); Albumin, Serum 4.3 g/dL (3.2-5.0); Alkaline Phosphatase 56 U/L (45-117); Anion Gap 6 (5-15); BUN 8 mg/dL (7-18); Calcium,Total 9.2 mg/dL (8.5-10.1); Chloride 108 mmol/L (98-107); Creatinine, Serum 0.61 mg/dL (0.55-1.02); EST Glomerular Filtration Rate 121 mL/min (>60); Est Glom Filt Rate - Afr Amer 146 mL/min (>60); Globulin 3.3 g/dL (2.2-4.2); Glucose 98 mg/dL (74-106); Protein, Total 7.6 g/dL (6.4-8.2); Sodium Level 141 mmol/L (136-145)
[2022-02-09 13:18] LABS: hCG Titer Quant., Serum 525 mIU/mL (1-3)
== END | disposition home or self-care (01) ==
LOC: LAB 12:09
PROVIDERS: PCP Family Medicine; Referring Provider Obstetrics & Gynecology; Visit Provider Obstetrics & Gynecology
DX: O46.90 Antepartum hemorrhage, unspecified, unspecified trimester (principal)
CPT/HCPCS: 36415; 80053; 84702; 85025